=== PATIENT | female | born 1980 | race Caucasian/White ===

== ENCOUNTER 2017-01-04 14:40 | Emergency (ER) | payer SELFPAY ==
[~2017-01-04] VITALS: Ht 160 cm; Wt 86.2 kg
[~2017-01-04 14:40] MED LIST: ALPR0.25 PO; ALPR1TAB2 PO; OXYC-250 PO; TRAM50TA PO
[2017-01-04 15:07] LABS: BILIRUBIN,URINE NEGATIVE (NEG); GLUCOSE,URINE NEGATIVE (NEG); NITRITE,URINE NEGATIVE (NEG); PH,URINE 5.5; PROTEIN,URINE NEGATIVE (NEG-TRACE); UROBILINOGEN,URINE 0.2 mg/dL (0.2 mg/dL)
[2017-01-04 15:14] LABS: BACTERIA,URINE MODERATE /HPF (0-FEW); RBC,URINE 0 /HPF (0-2); SQUAMOUS EPITHELIAL CELL,UR MOD /LPF; WBC,URINE OCC /HPF (0-4)
[2017-01-04] MEDS ORDERED: IV NORMAL SALINE 1000ML BAG 1,000 ML IV SCH (15:27)
[2017-01-04] MEDS ORDERED: ONDANSETRON PF 4 MG/2 ML VIAL. IV ONE (15:30)
[2017-01-04] MEDS: FENTANYL PF 100 MCG/2 ML VIAL. IV PRN ×3 (16:03→17:14)
[2017-01-04 16:14] LABS: BASO # 0.1 x10^3/uL (0.0-0.2); BASO % 1 % (0-3); EOS % 2 % (0-3); HEMATOCRIT 38.7 % (36.0-47.0); HEMOGLOBIN 12.5 g/dL (12.0-15.5); LYMPH # 3.4 x10^3/uL (1.0-4.8); LYMPH % 30 % (24-48); MEAN CORPUSCULAR HEMOGLOBIN 28 pg (25-35); MEAN CORPUSCULAR HGB CONC 32 g/dL (31-37); MEAN CORPUSCULAR VOLUME 86 fL (79-100); MONO % 6 % (0-9); NEUT % 61 % (31-73); PLATELET COUNT 248 x10^3/uL (140-400); RED BLOOD COUNT 4.49 x10^6/uL (3.50-5.40); RED CELL DISTRIBUTION WIDTH 14.1 % (11.5-14.5); WHITE BLOOD COUNT 11.1 x10^3/uL (4.0-11.0)
--- NOTE | 2017-01-04 16:16 | ED.ADGEN ---
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 Patient states that she began experiencing abdominal pain yesterday after episode of coughing, describe it as a sharp stabbing pain as soreness. She states that it become progressively worse, she took 2 oxycodone at home hours prior to arrival without relief, denies any fevers or chills, states that her nausea and pain has been progressively increasing. She denies any injuries, any sick contacts or exposures, any urinary complaints, any weakness emesis or tingling, any chest pain, shortness of breath or productive cough. No discharge or drainage from the vagina. She states that she 2 episodes of loose brown green stool yesterday, has had no bowel movement since that time. Review of Systems Review of Systems Constitutional: Denies fever or chills. [] Eyes: Denies change in visual acuity. [] HENT: Denies nasal congestion or sore throat. [] Respiratory: Denies cough or shortness of breath. [] Cardiovascular: Denies chest pain or edema. [] GI: Right-sided abdominal pain, nausea, diarrhea, no bloody stools or bloody emesis. : Denies dysuria. [] Musculoskeletal: Denies back pain or joint pain. [] Integument: Denies rash. [] Neurologic: Denies headache, focal weakness or sensory changes. [] Endocrine: Denies polyuria or polydipsia. [] Lymphatic: Denies swollen glands. [] Psychiatric: Denies depression or anxiety. [] Current Medications Current Medications Current Medications Medications (Trade) Dose Ordered Sig/Juan Pablo Start Time Stop Time Status Last Admin Dose Admin Dicyclomine HCl (Bentyl) 10 mg 1X ONCE 01/04/17 18:00 01/04/17 18:01 DC 4/11/17 17:59 10 MG Fentanyl Citrate 25 mcg 25 mcg PRN Q15MIN PRN 01/04/17 15:30 01/04/17 18:06 DC 01/04/17 17:14 25 MCG Iohexol (Omnipaque 300 Mg/ml) 75 ml 1X ONCE 01/04/17 16:45 01/04/17 16:46 DC 01/04/17 17:01 75 ML Ondansetron HCl (Zofran) 4 mg 1X ONCE 01/04/17 15:30 01/04/17 15:31 DC 01/04/17 16:02 4 MG Sodium Chloride (Iv Sodium Chloride 0.9% 1000ml Bag) 1,000 ml @ 1,000 mls/hr Q1H 01/04/17 15:27 01/04/17 16:26 DC 01/04/17 16:02 1,000 MLS/HR Allergies Allergies Allergies Coded Allergies Type Severity Reaction Last Updated Verified levofloxacin Allergy Intermediate mouth ulcers 10/18/13 Yes sulfamethoxazole Allergy Intermediate rash 10/18/13 Yes trimethoprim Allergy Intermediate rash 10/18/13 Yes Sulfa (Sulfonamide Antibiotics) Allergy Unknown 08/03/16 Yes naproxen Allergy Unknown 08/03/16 Yes Physical Exam Physical Exam Constitutional: Well developed, well nourished, mild distress secondary to pain , non-toxic appearance. [] HENT: Normocephalic, atraumatic, bilateral external ears normal, oropharynx moist, no oral exudates, nose normal. [] Eyes: PERRLA, EOMI, conjunctiva normal, no discharge. [] Neck: Normal range of motion, no tenderness, supple, no stridor. [] Cardiovascular:Heart rate regular rhythm, no murmur , S1, S2, rubs or gallops. [ ] Lungs & Thorax: Bilateral breath sounds clear to auscultation, no wheezing, rhonchi, rales. No chest or crepitus or tenderness. [] Abdomen: Bowel sounds normal, soft, moderate tenderness palpation in the right midabdomen, no upper abdominal tenderness, no rebound, rigidity, no guarding, no masses, no pulsatile masses. [] Skin: Warm, dry, no erythema, no rash. [] Back: No tenderness, no CVA tenderness. [] Extremities: No tenderness, no cyanosis, no clubbing, ROM intact, no edema. [] Neurologic: Alert and oriented X 3, normal motor function, normal sensory function, no focal deficits noted. [] Psychologic: Affect normal, judgement normal, mood normal. [] Current Patient Data Vital Signs Vital Signs Date Time Temp Pulse Resp B/P Pulse Ox O2 Delivery O2 Flow Rate FiO2 01/04/17 17:09 105 17 141/94 99 Room Air 01/04/17 14:42 97.7 97.7 Lab Values Laboratory Tests Test 01/04/17 13:58 01/04/17 14:50 01/04/17 15:55 POC Urine HCG, Qualitative Hcg negative (Negative) Urine Collection Type Unknown Urine Color Yellow Urine Clarity Clear Urine pH 5.5 Urine Specific [place] 1.010 Urine Protein Negativemg/dL (NEG-TRACE) Urine Glucose (UA) Negativemg/dL (NEG) Urine Ketones (Stick) Negativemg/dL (NEG) Urine Blood Negative (NEG) Urine Nitrite Negative (NEG) Urine Bilirubin Negative (NEG) Urine Urobilinogen Dipstick 0.2mg/dL (0.2 mg/dL) Urine Leukocyte Esterase Negative (NEG) Urine RBC 0/HPF (0-2) Urine WBC Occ/HPF (0-4) Urine Squamous Epithelial Cells Mod/LPF Urine Bacteria Moderate/HPF (0-FEW) Urine Mucus Mod/LPF Urine Opiates Screen Neg (NEG) Urine Methadone Screen Neg (NEG) Urine Barbiturates Neg (NEG) Urine Phencyclidine Screen Neg (NEG) Urine Amphetamine/Methamphetamine Neg (NEG) Urine Benzodiazepines Screen Neg (NEG) Urine Cocaine Screen Neg (NEG) Urine Cannabinoids Screen Neg (NEG) Urine Ethyl Alcohol Neg (NEG) White Blood Count 11.1x10^3/uL (4.0-11.0) H Red Blood Count 4.49x10^6/uL (3.50-5.40) Hemoglobin 12.5g/dL (12.0-15.5) Hematocrit 38.7% (36.0-47.0) Mean Corpuscular Volume 86fL (79-100) Mean Corpuscular Hemoglobin 28pg (25-35) Mean Corpuscular Hemoglobin Concent 32g/dL (31-37) Red Cell Distribution Width 14.1% (11.5-14.5) Platelet Count 248x10^3/uL (140-400) Neutrophils (%) (Auto) 61% (31-73) Lymphocytes (%) (Auto) 30% (24-48) Monocytes (%) (Auto) 6% (0-9) Eosinophils (%) (Auto) 2% (0-3) Basophils (%) (Auto) 1% (0-3) Neutrophils # (Auto) 6.8x10^3uL (1.8-7.7) Lymphocytes # (Auto) 3.4x10^3/uL (1.0-4.8) Monocytes # (Auto) 0.6x10^3/uL (0.0-1.1) Eosinophils # (Auto) 0.2x10^3/uL (0.0-0.7) Basophils # (Auto) 0.1x10^3/uL (0.0-0.2) Sodium Level 139mmol/L (136-145) Potassium Level 4.0mmol/L (3.5-5.1) Chloride Level 103mmol/L (98-107) Carbon Dioxide Level 25mmol/L (21-32) Anion Gap 11 (6-14) Blood Urea Nitrogen 13mg/dL (7-20) Creatinine 0.8mg/dL (0.6-1.0) Estimated GFR (Cockcroft-Gault) 82.1 BUN/Creatinine Ratio 16 (6-20) Glucose Level 94mg/dL (70-99) Calcium Level 9.6mg/dL (8.5-10.1) Total Bilirubin 0.3mg/dL (0.2-1.0) Aspartate Amino Transferase (AST) 24U/L (15-37) Alanine Aminotransferase (ALT) 53U/L (14-59) Alkaline Phosphatase 71U/L (46-116) Total Protein 8.4g/dL (6.4-8.2) H Albumin 4.2g/dL (3.4-5.0) Albumin/Globulin Ratio 1.0 (1.0-1.7) Lipase 175U/L (73-393) Laboratory Tests 01/04/17 15:55 Laboratory Tests 01/04/17 15:55 EKG EKG ECG: Rhythm strip: Heart rate 110 bpm, sinus rhythm, no ectopy. As interpreted by me. [] Radiology/Procedures Radiology/Procedures [] [facility] [address] [place] [address] IMAGING REPORT Signed PATIENT: KARTHIKEYAN COUGHLIN ACCOUNT: [id number] : 1980 LOCATION: ER AGE: 36 SEX: F EXAM STATUS: REG ER ORD. PHYSICIAN: KATIE PETERSON DO REASON: R sided abd pain PROCEDURE: CT ABD PELV W/ IV CONTRST ONLY PROCEDURE CT abdomen pelvis without contrast. HISTORY Severe right lower quadrant pain and nausea today. TECHNIQUE Helical CT imaging of the abdomen and pelvis is performed after 75 cc Omnipaque 300 IV contrast. PQRS: One or more the following individualized dose reduction techniques were utilized for the study: 1. Automated exposure control. 2. Adjustment of the mA and/or kV according to patient size. 3. Use of iterative reconstruction technique. COMPARISON None. FINDINGS Lung bases clear. Cardiac size normal. Liver, gallbladder, spleen, pancreas, adrenal glands, and abdominal aortic caliber are normal. Kidneys enhance symmetrically without hydronephrosis. Evaluation of bowel may be limited without oral contrast. Stomach unremarkable. Appendix surgically absent. No dilated small bowel. There is no colon wall thickening. No abdominal adenopathy or free fluid. Urinary bladder is normal. Uterus unremarkable. Small left adnexal cyst. No pelvic free fluid. There is no acute bone abnormality. IMPRESSION No acute abdominal or pelvic abnormality. Electronically signed by: Toney Lam MD (Jan 04, 2017 17:20:38) DICTATED and SIGNED BY: TONEY LAM MD DATE: 01/04/17 172 CC: KATIE PETERSON DO; NO PCP ~ Course & Med Decision Making Course & Med Decision Making Pertinent Labs and Imaging studies reviewed. (See chart for details) Patient with pain in the mid abdominal region, not exhibiting any right upper quadrant tenderness at this time, she does still have her gallbladder. With patient's symptoms and duration, patient is agreeable to receiving a CT of the abdomen and pelvis, laboratory studies, fluids, antiemetics and pain medication. Laboratory studies and imaging not reveal any evidence of concerning findings. Findings were reviewed with the patient, she states that she is still having occasional cramping pain, no further diarrhea, no vomiting, nausea is resolved. Discussed use of oral hydration, Bentyl, Zofran, and follow- up with her primary care provider and Dr. Haywood of GI for additional evaluation as needed. Patient discharged home in stable condition with plan as above. Dragon Disclaimer Dragon Disclaimer This electronic medical record was generated, in whole or in part, using a voice recognition dictation system. Departure Impression: Primary Impression: Abdominal pain Disposition: HOME, SELF-CARE Condition: IMPROVED Scripts Ondansetron Hcl (Zofran)4 Mg Tablet1 Tab PO PRN Q6-8HRS #10 TAB Prov:KATIE PETERSON DO 01/04/17 Dicyclomine Hcl (Bentyl)10 Mg [id number] Mg PO QID PRN PAIN #12 TAB Prov:KATIE PETERSON DO 01/04/17 KATIE PETERSON DO Jan 04, 2017 16:16
[2017-01-04 16:25] LABS: CALCIUM 9.6 mg/dL (8.5-10.1); CREATININE 0.8 mg/dL (0.6-1.0); GFR 82.1
[2017-01-04 16:30] LABS: ALBUMIN 4.2 g/dL (3.4-5.0); TOTAL BILIRUBIN 0.3 mg/dL (0.2-1.0); TOTAL PROTEIN 8.4 g/dL (6.4-8.2)
[2017-01-04] MEDS ORDERED: IOHEXOL 300 MG/ML 75 ML VIAL IV ONE (16:45)
[2017-01-04 16:47] LABS: BARBITURATES NEG (NEG); BENZODIAZEPINES NEG (NEG); CANNABINOIDS NEG (NEG); COCAINE NEG (NEG); ETHANOL, URINE NEG (NEG); METHADONE NEG (NEG); OPIATES NEG (NEG); PHENCYCLIDINE NEG (NEG)
[2017-01-04 17:09] VITALS: BP 141/94
--- NOTE | 2017-01-04 17:21 | RAD ---
PROCEDURE CT abdomen pelvis without contrast. HISTORY Severe right lower quadrant pain and nausea today. TECHNIQUE Helical CT imaging of the abdomen and pelvis is performed after 75 cc Omnipaque 300 IV contrast. PQRS: One or more the following individualized dose reduction techniques were utilized for the study: 1. Automated exposure control. 2. Adjustment of the mA and/or kV according to patient size. 3. Use of iterative reconstruction technique. COMPARISON None. FINDINGS Lung bases clear. Cardiac size normal. Liver, gallbladder, spleen, pancreas, adrenal glands, and abdominal aortic caliber are normal. Kidneys enhance symmetrically without hydronephrosis. Evaluation of bowel may be limited without oral contrast. Stomach unremarkable. Appendix surgically absent. No dilated small bowel. There is no colon wall thickening. No abdominal adenopathy or free fluid. Urinary bladder is normal. Uterus unremarkable. Small left adnexal cyst. No pelvic free fluid. There is no acute bone abnormality. IMPRESSION No acute abdominal or pelvic abnormality. Electronically signed by: Toney Lam MD (Jan 04, 2017 17:20:38)
[2017-01-04] MEDS ORDERED: DICY10CA53 PO (17:46)
[2017-01-04] MEDS ORDERED: ONDA4TAB7 PO (17:46)
[2017-01-04] MEDS ORDERED: DICYCLOMINE HCL 10 MG CAPSULE PO ONE (18:00)
== END 2017-01-04 18:06 | disposition home or self-care (01) ==
LOC: ER 14:40
DX: R10.9 Unspecified abdominal pain (principal); F17.200 Nicotine dependence, unspecified, uncomplicated; F11.10 Opioid abuse, uncomplicated; Z90.721 Acquired absence of ovaries, unilateral; Z90.49 Acquired absence of other specified parts of digestive tract
CPT/HCPCS: 36415; 74177; 80053; 80305; 81001; 83690; 84703; 85027; 87086; 96361; 96374; 96375; 96376; 99285; J2405; J3010; J7030; Q9967; 81025; G0481